=== PATIENT | female | born 1935 | race Caucasian/White ===

== ENCOUNTER 2016-08-24 19:53 | Emergency (ER) | payer MEDICARE, OTHER ==
[~2016-08-24] VITALS: Ht 162.6 cm; Wt 86.4 kg
[~2016-08-24 19:53] MED LIST: ALPR0.5T PO; ATOR10TA65 PO; AZIT500T2 PO; HYD25 PO; MULT1CAP20 PO; PARO-37 PO; PERCOCET PO; SYN1 PO
[2016-08-24] MEDS ORDERED: morphine 10 MG INJ IM ONE (20:00)
--- NOTE | 2016-08-24 20:05 | ERD ---
ER Documentation Chief Complaint Date/Time DATE: 08/24/16 TIME: 20:03 Chief Complaint Mechanical fall followed by left wrist pain. HPI 72-year-old female is going down steps when she caught her foot and fell forward hitting caught herself with her left hand. She has been complaining of left wrist pain. This occurred several hours ago she helped the pain would go away. 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 She denies having any lightheadedness chest pain or any concerning symptoms prior to the fall and is able to explain a clear mechanism of her tripping. She has no other pain. And did not hit her head. ROS All systems reviewed and are negative except as per history of present illness. Medications Home Meds Active Scripts Azithromycin* (Zithromax* Tri-David) 500 Mg Tablet, 500 MG PO DAILY, #1 TAB Prov:MARVEL BELTRAN 12/02/13 Oxycodone Hcl/Acetaminophen (Percocet) 1 Tab Tab, 1 TAB PO Q3H Y for SEVERE PAIN LEVEL 7-10, #20 TAB Prov:MARVEL BELTRAN 12/02/13 Reported Medications Multivitamins (Replace) 1 Cap Capsule, PO DAILY 06/07/13 Levothyroxine Sodium* (Synthroid*) 100 Mcg Tablet, PO DAILY 06/07/13 Hydrochlorothiazide* (Hydrochlorothiazide*) 25 Mg Tab, PO DAILY 06/07/13 Paroxetine Hcl* (Paroxetine*) 20 Mg Tablet, PO DAILY 06/07/13 Atorvastatin Calcium (Atorvastatin Calcium) 10 Mg Tab, PO DAILY 06/07/13 Alprazolam* (Xanax*) 0.5 Mg Tab, PO QID 06/07/13 Allergies Allergies: Coded Allergies: Fish Liver Oil (Verified Allergy, Mild, 02/22/10) Sulfa (Sulfonamide Antibiotics) (Unverified Allergy, Mild, 12/01/13) RE-ENTERED UNCODED ALLERGY CODED iodine (Verified Allergy, Mild, 02/22/10) Uncoded Allergies: [id number] (SULFA (SULFONAMIDE ANTIBIOTICS)) (Allergy, Mild, 02/22/10) PMhx/Soc History of Surgery: Yes (thyroid, bladder) Anesthesia Reaction: No Hx Neurological Disorder: No Hx Respiratory Disorders: No Hx Cardiac Disorders: Yes (hyperlipidemia) Hx Psychiatric Problems: Yes (anxiety) Hx Miscellaneous Medical Probl: No Hx Alcohol Use: No Hx Substance Use: No Hx Tobacco Use: No Physical Exam Physical Exam Const: [] No distress Head: Atraumatic Eyes: Normal Conjunctiva Skin: No petechiae or rashes Back: No midline or flank tenderness Ext: No cyanosis, or edema, left wrist with no deformity but has tenderness about the posterior carpal bones and does not want to move the wrist in flexion and extension. No specific snuffbox tenderness. Neur: Awake and alert and oriented 3, no focal deficits Psych: Normal Mood and Affect EMMANUEL LI DO August 24, 2016 20:05
--- NOTE | 2016-08-24 21:21 | RADRPT ---
PROCEDURE: XR Wrist. CLINICAL INDICATION: Left wrist pain TECHNIQUE: 4 views of the left wrist were performed. COMPARISON: No prior studies are available for comparison. FINDINGS: No evidence of fracture, dislocation, or subluxation is seen. The bones appear well mineralized. The joint spaces are well preserved. The soft tissues appear intact. There is no radiopaque foreign bod y. No definite scaphoid waist fracture is identified. IMPRESSION: 1. Unremarkable left wrist x-ray series. RPTAT: HMJB .Isacc Adamson MD, MD Date Time Electronically viewed and signed by .Isacc Adamson MD, on 08/24/2016 21:21 .B/
[2016-08-24] MEDS ORDERED: NAPR-685 PO (21:40)
[2016-08-24] MEDS ORDERED: HYDR-906 PO (21:40)
[2016-08-24 21:42] VITALS: Ht 162.6 cm; Wt 86.4 kg
[2016-08-24 22:36] VITALS: BP 124/82; PULSE 79; RESP 18
== END 2016-08-24 22:37 | disposition home or self-care (01) ==
LOC: E/R 19:53
DX: S63.502A Unspecified sprain of left wrist, initial encounter (principal); W18.00XA Striking against unspecified object with subsequent fall, initial encounter; Y92.9 Unspecified place or not applicable
CPT/HCPCS: 29125; 73110; J2270; 96372